=== PATIENT | female | born 1955 | race Caucasian/White ===

== ENCOUNTER 2020-09-19 07:28 | Day surgery (SDC) | payer MEDICARE ==
--- OUTSIDE RECORDS SUMMARY | 2020-09-03 09:52 | XMSREPORT | Referral Summary ---
:1955 Author Organization [facility] and [facility] s Address [address] [place] [address] Care Team Providers Name Role Phone Ok Lezama MD Attributed Provider Reason for Referral Transitions of Care (Routine) Status Reason Specialty Diagnoses / Referred By Referred To Procedures Contact Contact New Request Patient Diagnoses [facility] of [facility], MD Faye, [address] [place], [place] [address] [address] [address] Phone: [place] [address] Fax: Reason for Visit Reason Comments Pre-Op Exam Colonoscopy at [facility] e to be determined Encounter Details Date Type Department Care Team Description 08/26/2020 Office Visit Jean Pierre Tirado, Pre- op evaluation (Primary Dx); Clinic Family Nam flores MD History of colon polyps; [address] Polymyalgia rheumatica (HCC); [place] [address] [place] Hypothyroidism, unspecified type [phone] Allergies No Known Active Allergiesdocumented as of this encounter (statuses as of 08/26/2020) Medications Medication Sig Dispensed Refills Start Date End Date Status ESTRADIOL-PROGESTERONE Apply 0.5 mg 0 Active PO topically 1 time per day 5mg/40mg/gm cream compounded or Estradiol-Progest 1 Bottle 0 11/13/2018 Active miscellaneous topical erone 5 mg/40 medicationIndications: mg/gm cream Menopausal symptoms topical: Apply 0.5 mg topically 1 time per day. progesterone Compounded SR 90 capsule 3 09/27/2019 A ctive micronized Capsules take 1 (PROMETRIUM) 100 MG capsule at capsuleIndications: bedtime. Menopausal symptoms compounded or estradiol 1 Bottle 3 11/20/2019 Activ e miscellaneous topical 0.5mg/gm cream medicationIndications: topical: Apply Menopausal symptoms 0.5 g topically 1 time per day. thyroid (ARMOUR Take 1 tablet (15 90 tablet 4 08/25/2020 Active THYROID) 15 mg tablet mg) by mouth 1 (1/4 time a day in the grain)Indications: morning Hypothyroidism (acquired) predniSONE 5 mg Take 1-2 tablets 180 tablet 2 08/25/2020 Active tabletIndications: PMR (5-10 mg) by (polymyalgia mouth 1 time per rheumatica) (HCC) day To be used with 1 mg tablets for tapering. predniSONE 1 mg Take 1-4 tablets 360 tablet 1 08/25/2020 Active tabletIndications: PMR (1-4 mg) by mouth (polymyalgia 1 time per day rheumatica) (HCC) Take with 5 mg tablets for tapering. 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 Colon polyps 03/17/2015 Gluten intolerance 06/18/2014 Dyspareunia (CODE) 10/20/2013 Routine general medical examination at [facility] 04/06/2011 documented as of this encounter (statuses as of 08/26/2020) Immunizations Name Administration Dates Next Due FLU VACCINE HIGH DOSE 65YR+(Fluzone) 11/23/2019 Hep A,adult 12/19/2015 Influenza Vaccine 12/19/2010 Influenza Vaccine,unspecified 12/19/2015, 01/09/2013, 2011, 01/28/2010, 12/12/2008 Pneumococcal Conj PCV13 10/29/2019 TDAP 10/30/2010 Zoster Live(Zostavax) 12/19/2015 documented as of this encounter Social History Tobacco Use Types Packs/Day Years Used Date Never Smoker Smokeless Tobacco: Never Used Sexually Active Control Partners Comments Yes Post-menopausal Male Sex Assigned at Date Recorded Not on file documented as of this encounter Last Filed Vital Signs Vital Sign Reading Time Taken Comments Blood Pressure 112/62 08/26/2020 1:23 PM CDT Pulse 87 08/26/2020 1:23 PM CDT Temperature 37.2 C (98.9 F) 08/26/2020 1:23 PM CDT Respiratory Rate - - Oxygen Saturation 98% 08/26/2020 1:23 PM CDT Inhaled Oxygen Concentration - - Weight 61.8 kg (136 lb 3.2 oz) 08/26/2020 1:23 PM CDT Height 149.9 cm (4' 11") 08/26/2020 1:23 PM CDT Body Mass Index 27.51 08/26/2020 1:23 PM CDT documented in this encounter Functional Status Functional Status Response Date of Assessment Do you have difficulty with walking, balance, climbing No 09/27/2019 stairs, or had a fall in the last 3 months? documented as of this encounter Plan of Treatment Date Type Specialty Care Team Description 10/29/2020 Office Visit Rheumatology Judi Medina MD [address] [place], [place] [address] [phone] Name Type Priority Associated Diagnoses Order S chedule TSH Lab Routine Hypothyroidism, unspecified type Expected: 08/26/2020 (Approximate), Expires: 09/26/2021 Name Type Priority Associated Diagnoses Order S chedule CLINIC REFERRAL Referral Routine History of colon polyps O rdered: 08/26/2020 ENDOSCOPY NON ONE CHART documented as of this encounter Visit Diagnoses Diagnosis Pre-op evaluation - Primary Preoperative examination, unspecified History of colon polyps Personal history of colonic polyps Polymyalgia rheumatica (HCC) Polymyalgia rheumatica Hypothyroidism, unspecified type documented in this encounter
[2020-09-19] MEDS ORDERED: fentaNYL 100 MCG/2 ML SDV ONE (07:31)
[2020-09-19] MEDS ORDERED: Propofol 200 MG/20 ML SDV ONE (07:31)
[2020-09-19] MEDS ORDERED: Midazolam 1 MG/ML 2 ML SDV ONE (07:31)
[2020-09-19] MEDS ORDERED: Sodium Chloride 0.9% 1,000 ML IV SCH (08:15)
--- NOTE | 2020-09-20 07:59 | OR ---
DATE OF PROCEDURE: 09/19/2020 SURGEON: Sudeep Suazo MD PROCEDURE: Colonoscopy. FINDINGS: Diverticulosis. COMPLICATIONS: None. HAM CLERK: None. ANESTHESIA: MAC. PREOPERATIVE DIAGNOSIS: Screening colonoscopy. POSTOPERATIVE DIAGNOSIS: Screening colonoscopy. RISKS: Risks, benefits, alternatives, and limitations including, but not limited to infection, bleeding, perforation, false positives, false negatives were explained to the patient who wished to proceed. PROCEDURE IN DETAIL: The patient was placed in left lateral decubitus position. Digital rectal exam was performed without abnormality. Scope was introduced and advanced atraumatically to the ileocecal valve. A photo was taken of appendiceal orifice. The scope was brought back to the ascending, transverse, descending colon, and retroflexed. No polyps. No old or new blood. No masses. No colitis. The diverticulosis was described as mild to moderate, mostly limited to sigmoid colon without evidence of diverticulitis or bleeding. No abnormalities on retroflexion. The prep was supple, approximately 90% luminal surface could be seen. Greater than 8 minutes was spent removing the scope. The patient tolerated the procedure well. Sudeep Suazo MD /[id number]
== END 2020-09-19 11:41 | disposition home or self-care (01) ==
LOC: JP.SDS 07:28
PROVIDERS: ATTEND Surgery
DX: Z12.11 Encounter for screening for malignant neoplasm of colon (principal); K57.30 Diverticulosis of large intestine without perforation or abscess without bleeding; E03.9 Hypothyroidism, unspecified
CPT/HCPCS: G0121; J2250; J2704; J3010; J7030